=== PATIENT | male | born 1985 | race Caucasian/White ===

== ENCOUNTER → 2016-07-13 | Outpatient (CLI) | payer BC ==
[~2016-07-13] MED LIST: ATIVAN 0.50.5 MG/TAB; CONCERTA18 MG PO; VYVANSE70 MG
== END ==
LOC: BHSO 10:49
DX: F90.0 Attention-deficit hyperactivity disorder, predominantly inattentive type (principal)

== ENCOUNTER → 2016-07-14 | Outpatient (REF) | LOC: WSOH 08:20 | DX: Z02.4 Encounter for examination for driving license (principal) ==

== ENCOUNTER → 2016-10-12 | Outpatient (CLI) | payer BC | LOC: BHSO 10:57 | DX: F90.0 Attention-deficit hyperactivity disorder, predominantly inattentive type (principal) ==

== ENCOUNTER → 2017-01-11 | Outpatient (CLI) | payer BC | LOC: BHSO 10:48 | DX: F90.0 Attention-deficit hyperactivity disorder, predominantly inattentive type (principal) ==

== ENCOUNTER → 2017-03-01 | Outpatient (CLI) | payer BC | LOC: BHSO 13:42 | DX: F90.0 Attention-deficit hyperactivity disorder, predominantly inattentive type (principal) ==

== ENCOUNTER → 2017-08-02 | Outpatient (CLI) | payer BC | LOC: BHSO 10:02 | DX: F90.0 Attention-deficit hyperactivity disorder, predominantly inattentive type (principal) | CPT/HCPCS: G0463 ==

== ENCOUNTER → 2017-09-13 | Outpatient (CLI) | payer BC | LOC: BHSO 09:36 | DX: F41.1 Generalized anxiety disorder (principal) | CPT/HCPCS: G0463 ==

== ENCOUNTER → 2017-10-22 | Outpatient (CLI) | payer BC | LOC: BHSO 11:34 | DX: F90.0 Attention-deficit hyperactivity disorder, predominantly inattentive type (principal) | CPT/HCPCS: G0463 ==

== ENCOUNTER → 2017-12-03 | Outpatient (CLI) | payer BC | LOC: BHSO 11:27 | DX: F90.0 Attention-deficit hyperactivity disorder, predominantly inattentive type (principal) | CPT/HCPCS: G0463 ==

== ENCOUNTER 2018-02-03 11:41 | Emergency (ER) | payer BC ==
[~2018-02-03] VITALS: Ht 170.2 cm; Wt 72.3 kg
[2018-02-03 11:46] VITALS: TEMP 98.7
[2018-02-03] MEDS ORDERED: DEPAKOTE 125MG125 M1 PO (12:17)
[2018-02-03 13:11] LABS: BASO % 0.3 % (0.0-2.0); EOS # 0.1 (0.0-0.7); EOS % 0.8 % (0-4.0); HEMATOCRIT 45.4 % (42.0-52.0); HEMOGLOBIN 15.9 g/dl (13.5-18.0); LYMPH # 1.9 (1.2-3.4); LYMPH % 25.4 % (20.0-51.0); MEAN CELL VOLUME 88 fl (80.0-100.0); MEAN CORPUSCULAR HEMOGLOBIN 31 pg (27.0-31.0); MEAN CORPUSCULAR HGB CONC 35 g/dl (33.0-37.0); MONO # 0.6 (0.1-0.6); MONO % 8.1 % (1.7-9.3); PLATELET COUNT 148 K/mm3 (130-400); RED BLOOD COUNT 5.19 M/mm3 (4.20-5.60); REDCELL DISTRIBUTION WIDTH-CV 12.9 % (11.5-14.5)
[2018-02-03 13:24] LABS: ALBUMIN 4.1 gm/dL (3.5-5.0); BILIRUBIN,TOTAL 0.9 mg/dL (0.0-1.0); C-REACTIVE PROTEIN 1.4 mg/dL (0.0-0.9); CALCIUM 9.2 mg/dL (8.4-10.2); CREATININE, serum 0.76 mg/dL (0.66-1.25); POTASSIUM 4.1 mmol/L (3.4-5.0)
[2018-02-03 13:36] LABS: COLLECTION METHOD CLEAN CATCH
[2018-02-03 13:41] LABS: MUCOUS Present /lpf; PH 5 (5-8); SQUAMOUS EPITHELIAL 0-2 /hpf; URINE APPEARANCE Clear; URINE BACTERIA None Seen /hpf; URINE BILIRUBIN Negative (NEGATIVE); URINE BLOOD Negative (NEGATIVE); URINE COLOR Yellow; URINE GLUCOSE Negative (NEGATIVE); URINE KETONE Negative (NEGATIVE); URINE LEUKOCYTE ESTERASE Negative (NEGATIVE); URINE NITRATE Negative (NEGATIVE); URINE PROTEIN(semi-quant) Negative (NEGATIVE); URINE RBC 0-2 /hpf
[2018-02-03] MEDS ORDERED: NORCO 325 MG-51 TAB PO (16:25)
[2018-02-03 16:50] VITALS: BP 100/55; PULSE 54
[2018-02-03] MEDS ORDERED: PHENERGAN 25 TA25 MG PO (16:56)
[2018-02-04] MEDS ORDERED: CONCERTA54 MG PO (18:07)
[2018-02-04] MEDS ORDERED: DEPAKOTE ER 50500 MG PO (18:07)
== END 2018-02-03 16:51 | disposition home or self-care (01) ==
LOC: COL.ER 11:41
PROVIDERS: Nurse Practitioner
DX: R11.2 Nausea with vomiting, unspecified (principal); R10.30 Lower abdominal pain, unspecified; F90.9 Attention-deficit hyperactivity disorder, unspecified type; F41.9 Anxiety disorder, unspecified; F31.9 Bipolar disorder, unspecified; F17.210 Nicotine dependence, cigarettes, uncomplicated; Z88.0 Allergy status to penicillin
CPT/HCPCS: J1170; J1200; J1885; J2270; J2550; J2765; J7030; Q9967

== ENCOUNTER 2018-02-04 17:38 | Observation (INO) | payer BC ==
[~2018-02-04] VITALS: Ht 170.2 cm; Wt 73.5 kg
[~2018-02-04 17:38] MED LIST changes: +DEPAKOTE 125MG125 M1 PO; +NORCO 325 MG-51 TAB PO; +PHENERGAN 25 TA25 MG PO
[2018-02-04] MEDS ORDERED: CONCERTA54 MG PO (18:07)
[2018-02-04] MEDS ORDERED: DEPAKOTE ER 50500 MG PO (18:07)
[2018-02-04 18:37] LABS: BASO % 0.3 % (0.0-2.0); EOS # 0.1 (0.0-0.7); EOS % 1.1 % (0-4.0); GRAN # 3.7 (1.4-6.5); GRAN % 51.1 % (42.2-75.2); HEMATOCRIT 42.5 % (42.0-52.0); HEMOGLOBIN 14.9 g/dl (13.5-18.0); LYMPH % 40.8 % (20.0-51.0); MEAN CELL VOLUME 89 fl (80.0-100.0); MEAN CORPUSCULAR HEMOGLOBIN 31 pg (27.0-31.0); MEAN CORPUSCULAR HGB CONC 35 g/dl (33.0-37.0); MEAN PLATELET VOLUME 10.9 fl (7.4-10.4); MONO # 0.5 (0.1-0.6); MONO % 6.3 % (1.7-9.3); PLATELET COUNT 157 K/mm3 (130-400); REDCELL DISTRIBUTION WIDTH-CV 12.8 % (11.5-14.5)
[2018-02-04 18:44] LABS: ALBUMIN 3.9 gm/dL (3.5-5.0); BILIRUBIN,TOTAL 0.7 mg/dL (0.0-1.0); C-REACTIVE PROTEIN 0.8 mg/dL (0.0-0.9); CREATININE, serum 0.74 mg/dL (0.66-1.25); POTASSIUM 3.6 mmol/L (3.4-5.0); TOTAL PROTEIN 6.6 gm/dL (6.4-8.2)
[2018-02-04 20:59] VITALS: BP 123/70; PULSE 49; TEMP 98.1
[2018-02-04 21:00] VITALS: BP 123/70; PULSE 49; TEMP 98.1
[2018-02-05] VITALS (10 sets, daily range): BP systolic 103–134; BP diastolic 64–91; PULSE 52–81; TEMP 97.4–98.1
[2018-02-05 07:51] LABS: BASO % 0.3 % (0.0-2.0); EOS # 0.1 (0.0-0.7); GRAN # 4.1 (1.4-6.5); HEMATOCRIT 46.4 % (42.0-52.0); HEMOGLOBIN 15.9 g/dl (13.5-18.0); LYMPH # 4.2 (1.2-3.4); LYMPH % 45.9 % (20.0-51.0); MEAN CELL VOLUME 90 fl (80.0-100.0); MEAN CORPUSCULAR HEMOGLOBIN 31 pg (27.0-31.0); MEAN CORPUSCULAR HGB CONC 34 g/dl (33.0-37.0); MONO # 0.7 (0.1-0.6); MONO % 7.6 % (1.7-9.3); PLATELET COUNT 174 K/mm3 (130-400); RED BLOOD COUNT 5.18 M/mm3 (4.20-5.60); REDCELL DISTRIBUTION WIDTH-CV 12.8 % (11.5-14.5)
[2018-02-05 07:54] LABS: CALCIUM 9.3 mg/dL (8.4-10.2); CREATININE, serum 0.77 mg/dL (0.66-1.25); POTASSIUM 4.5 mmol/L (3.4-5.0)
[2018-02-06 00:32] VITALS: BP 109/56; PULSE 71; TEMP 98.2
[2018-02-06 04:34] VITALS: BP 110/63; PULSE 57; TEMP 97.6
[2018-02-06 07:57] VITALS: BP 100/52; PULSE 61; TEMP 98.2
[2018-02-06 12:17] VITALS: BP 117/71; PULSE 52; TEMP 98
[2018-02-06 16:07] VITALS: BP 120/72; PULSE 63; TEMP 98.1
[2018-02-06 20:02] VITALS: BP 119/74; PULSE 84; TEMP 97.8
[2018-02-07 04:06] VITALS: BP 108/70; PULSE 59; TEMP 97.7
[2018-02-07 07:51] VITALS: BP 125/75; PULSE 55; TEMP 97.5
[2018-02-07 11:40] VITALS: BP 102/60; PULSE 71; TEMP 97.6
[2018-02-07 16:07] VITALS: BP 102/60; PULSE 65; TEMP 98.6
[2018-02-07 20:00] VITALS: BP 115/77; PULSE 66; TEMP 98.3
[2018-02-08] VITALS: BP 117/71; PULSE 60; TEMP 98
[2018-02-08 04:00] VITALS: BP 117/75; PULSE 57; TEMP 97.6
[2018-02-08 07:35] VITALS: BP 113/70; PULSE 64; TEMP 97.6
[2018-02-08 11:21] VITALS: BP 115/64; PULSE 67; TEMP 97.8
== END 2018-02-08 14:27 | disposition home or self-care (01) ==
LOC: COL.ER 17:38 → SURG 19:03
PROVIDERS: Emergency Medicine; Surgery
DX: D13.30 Benign neoplasm of unspecified part of small intestine (principal); K56.1 Intussusception; F90.9 Attention-deficit hyperactivity disorder, unspecified type; F41.9 Anxiety disorder, unspecified; F31.9 Bipolar disorder, unspecified; F17.210 Nicotine dependence, cigarettes, uncomplicated; G89.29 Other chronic pain; Z88.0 Allergy status to penicillin
CPT/HCPCS: A4314; A9284; C9113; G0378; J0330; J0694; J1100; J1170; J1650; J1885; J2250; J2270; J2405; J2704; J2710; J3010; J3480

== ENCOUNTER → 2018-02-24 | Outpatient (CLI) | payer BC ==
[~2018-02-24] MED LIST changes: +CONCERTA54 MG PO; +DEPAKOTE ER 50500 MG PO
== END ==
LOC: BHSO 09:12
DX: F90.0 Attention-deficit hyperactivity disorder, predominantly inattentive type (principal)
CPT/HCPCS: G0463

== ENCOUNTER → 2018-05-12 | Outpatient (CLI) | payer BC | LOC: BHSO 08:14 | DX: F90.0 Attention-deficit hyperactivity disorder, predominantly inattentive type (principal) | CPT/HCPCS: G0463 ==

== ENCOUNTER → 2018-08-30 | Outpatient (CLI) | payer BC, OTHER | LOC: COL.RAD 09:18 | DX: M75.101 Unspecified rotator cuff tear or rupture of right shoulder, not specified as traumatic (principal); M12.811 Other specific arthropathies, not elsewhere classified, right shoulder ==

== ENCOUNTER → 2019-06-06 | Outpatient (CLI) | payer BC | LOC: COL.RAD 12:55 | DX: T14.8XXA Other injury of unspecified body region, initial encounter (principal); M25.462 Effusion, left knee ==

== ENCOUNTER 2021-01-25 14:15 | Emergency (ER) | payer BC ==
[~2021-01-25] VITALS: Ht 172.7 cm; Wt 76.4 kg
[~2021-01-25 14:15] MED LIST changes: +CARAFATE 1GM1 G PO; +PRILOSEC 20MG20 MG PO; +ZOFRAN ODT4 MG PO
[2021-01-25 14:27] VITALS: BP 120/80; TEMP 97.2
[2021-01-25] MEDS ORDERED: NORCO 325 MG-51 TAB PO (15:46)
[2021-01-25 17:20] VITALS: PULSE 68
== END 2021-01-25 17:20 | disposition home or self-care (01) ==
LOC: COL.ER 14:15
DX: R10.13 Epigastric pain (principal); F17.210 Nicotine dependence, cigarettes, uncomplicated; Z98.890 Other specified postprocedural states
CPT/HCPCS: J1170; J2270; J3010; J7030; Q9967

== ENCOUNTER 2021-03-14 09:26 | Day surgery (SDC) | payer BC ==
[~2021-03-14] VITALS: Ht 172.7 cm; Wt 73.5 kg
[2021-03-14 09:51] VITALS: BP 111/75; PULSE 68; TEMP 97.9
[2021-03-14 11:25] VITALS: BP 115/76; PULSE 65; TEMP 97.1
--- NOTE | 2021-03-14 11:25 | NUR ---
PATIENT TRANSPORTED PER CART FROM GI SUITE TO BAY 7 ACCOMPANIED BY ENDO RN. PATIENT AMBULATED FROM CART TO CHAIR WITH SLOW STEADY GAIT. 1 ASSIST. PATIENT TALKS WITH STAFF. MONITORS APPLIED. VSS ON ROOM AIR. 1140 VSS ON ROOM AIR. PATIENT TOLERATES FOOD AND DRINK WITHOUT PROBLEMS. DENIES NAUSEA AND DISCOMFORT. DR POSADA SPEAKS WITH PATIENT.
[2021-03-14 11:40] VITALS: BP 118/81; PULSE 66; TEMP 97.3
[2021-03-14 11:46] VITALS: BP 115/86; PULSE 66
[2021-03-14 12:00] VITALS: BP 118/80; PULSE 59
--- NOTE | 2021-03-14 12:00 | NUR ---
VSS ON ROOM AIR. PATIENT STATES READY TO GO EAT REAL FOOD. IV SITE DC'D WITH CATHETER TIP INTACT. PRESSURE AND BANDAGE APPLIED. DISCHARGE INSTRUCTIONS GIVEN VERBAL AND DISCHARGE PACKET GIVEN TO PATEINT. QUESTIONS ANSWERED AND PATIENT VOICED UNDERSTANDING. PATIENT CHANGES INTO STREET [employer]OTHES. 1210 PATIENT DISMISSED PER WHEEL CHAIR ACCOMPANIED BY AMB RN TO PRIVATE VECHILE DRIVEN BY .
== END 2021-03-14 12:10 | disposition home or self-care (01) ==
LOC: SDCO 09:26
DX: K29.50 Unspecified chronic gastritis without bleeding (principal); K21.00 Gastro-esophageal reflux disease with esophagitis, without bleeding; R63.4 Abnormal weight loss; K56.1 Intussusception; G89.29 Other chronic pain; M54.9 Dorsalgia, unspecified; I77.4 Celiac artery compression syndrome; F90.9 Attention-deficit hyperactivity disorder, unspecified type; F31.9 Bipolar disorder, unspecified; F41.9 Anxiety disorder, unspecified; F17.210 Nicotine dependence, cigarettes, uncomplicated; Z20.822 Contact with and (suspected) exposure to COVID-19; Z79.899 Other long term (current) drug therapy
CPT/HCPCS: J2704; J7030

== ENCOUNTER 2023-07-06 00:52 | Inpatient (IN) | payer OTHER ==
[~2023-07-06] VITALS: Ht 172.7 cm; Wt 75.1 kg
[2023-07-06] VITALS (8 sets, daily range): BP systolic 118–129; BP diastolic 77–87; PULSE 68–80; TEMP 97.4–97.6
[~2023-07-06 00:52] MED LIST changes: +PROTONIX 40MG T40 MG PO
[2023-07-06 01:15] LABS: BASO % 0.4 % (0.0-2.0); EOS # 0.2 K/mm3 (0.0-0.7); EOS % 1.4 % (0.0-4.0); GRAN % 70.9 % (42.2-75.2); HEMATOCRIT 42.7 % (42.0-52.0); HEMOGLOBIN 14.9 g/dl (13.5-18.0); LYMPH # 2.4 K/mm3 (1.2-3.4); LYMPH % 21.6 % (20.0-51.0); MEAN CELL VOLUME 88 fl (80.0-100.0); MEAN CORPUSCULAR HEMOGLOBIN 31 pg (27-31); MEAN CORPUSCULAR HGB CONC 35 g/dl (33.0-37.0); MEAN PLATELET VOLUME 11.5 fl (7.4-10.4); MONO # 0.6 K/mm3 (0.1-0.6); MONO % 5.4 % (1.7-9.3); PLATELET COUNT 219 K/mm3 (130-400); RED BLOOD COUNT 4.86 M/mm3 (4.20-5.60); REDCELL DISTRIBUTION WIDTH-CV 12.8 % (11.5-14.5)
[2023-07-06 02:06] LABS: ALBUMIN 3.7 gm/dL (3.5-5.0); BILIRUBIN,TOTAL 0.7 mg/dL (0.2-1.2); C-REACTIVE PROTEIN 0.33 mg/dL (0.00-0.50); CREATININE, serum 0.77 mg/dL (0.72-1.25); POTASSIUM 3.9 mmol/L (3.5-4.5); TOTAL PROTEIN 5.9 gm/dL (6.2-8.1)
[2023-07-06] MEDS ORDERED: ADDERALL XR30 MG PO (02:11)
[2023-07-06] MEDS ORDERED: NUVIGIL200 MG PO (02:12)
--- NOTE | 2023-07-06 05:01 | NUR ---
pt arrived to room 329 at 0435. pt ambulated to bed with steady gait. pt ng hooked to lis with brown drainage. pt reports his abd/epigastric pain was relieved by meds given in the er. pt educated to call if he begins having pain again. pt a&o x4. pt has lr running at 125ml/hr to the right wrist. pt aware he is npo and denied mouth swabs for now. pt vss. call light in reach. all needs met at this time.
--- NOTE | 2023-07-06 08:49 | NUR ---
Initial visit attempt; Patient resting, Waist Pleater left card offering Spiritual Care at [facility].
--- NOTE | 2023-07-06 08:50 | NUR ---
PT RESTING IN BED WITH NG TUBE TO DR HILARY ZAMUDIO IN TO SEE PT THIS AM. SEE COMPUTER FOR NEW ORDERS. SCANT DRAINAGE IN TUBE AND NONE IN CANISTER. IV TO LFA.
--- NOTE | 2023-07-06 08:52 | NUR ---
Initial visit attempt; Patient resting. Client Experience Specialist left card offering Spiritual [facility] at [facility].
--- NOTE | 2023-07-06 09:34 | NUR ---
beadworker met with patient to complete discharge planning. Pt lives with his family in [place]. He reports his PCP as Dr. Angel and obtains medications from [facility] with no difficulties. He obtains generic meds as the name brand are expensive. He is independent with [facility] and uses no DME. Pt would like to complete a DPOA-HC, but asked if SW could do it later. SW provided her number for him to call when he is ready. Pt declines the need for PT/OT services and reports he gets around fine. He intends to return home at discharge. Discharge Plan: Home
[2023-07-06 10:30] LABS: BASO % 0.2 % (0.0-2.0); EOS # 0.1 K/mm3 (0.0-0.7); EOS % 1.5 % (0.0-4.0); GRAN # 5.6 K/mm3 (1.4-6.5); GRAN % 64.9 % (42.2-75.2); HEMATOCRIT 39.6 % (42.0-52.0); HEMOGLOBIN 13.8 g/dl (13.5-18.0); LYMPH # 2.3 K/mm3 (1.2-3.4); LYMPH % 26.7 % (20.0-51.0); MEAN CELL VOLUME 89 fl (80.0-100.0); MEAN CORPUSCULAR HEMOGLOBIN 31 pg (27-31); MEAN CORPUSCULAR HGB CONC 35 g/dl (33.0-37.0); MEAN PLATELET VOLUME 10.2 fl (7.4-10.4); MONO # 0.6 K/mm3 (0.1-0.6); MONO % 6.5 % (1.7-9.3); PLATELET COUNT 165 K/mm3 (130-400); RED BLOOD COUNT 4.45 M/mm3 (4.20-5.60); REDCELL DISTRIBUTION WIDTH-CV 12.9 % (11.5-14.5)
[2023-07-06 10:51] LABS: ALBUMIN 3.3 gm/dL (3.5-5.0); BILIRUBIN,TOTAL 0.5 mg/dL (0.2-1.2); CALCIUM 8.8 mg/dL (8.4-10.2); CREATININE, serum 0.72 mg/dL (0.72-1.25); POTASSIUM 3.8 mmol/L (3.5-4.5); TOTAL PROTEIN 5.6 gm/dL (6.2-8.1)
--- NOTE | 2023-07-06 19:14 | NUR ---
report received from kim ontiveros. pt resting in bed with family at bedside. pt reports some pain but states prn medication given by previous shift has relieved most of it. pt rates pain 2/10. call light in reach. all needs met at this time.
--- NOTE | 2023-07-06 21:14 | NUR ---
shift assessment complete, see documentation. pt reporting 7/10 abd pain. prn dilaudid administered per orders. pt tolerating clears ok. ivf continue to run to right wrist iv without issue. call light in reach. all needs met at this time.
[2023-07-07] VITALS (17 sets, daily range): BP systolic 117–153; BP diastolic 79–97; PULSE 49–83; TEMP 97.5–98.9
--- NOTE | 2023-07-07 00:33 | NUR ---
pt pain not controlled with prn dilaudid. called dr blanton. new order for prn norco 5-325mg q4h for pain. norco administered per orders. call light in reach. all needs met at this time.
--- NOTE | 2023-07-07 00:50 | NUR ---
pt reporting the pain meds do seem to be keeping his pain level down. prn norco dropped his pain level a small amount. prn dilaudid administered per orders. pt now laying down for bed. call light in reach. all needs met at this time.
--- NOTE | 2023-07-07 08:37 | NUR ---
PT RESTING IN BED, PAIN ISSUES CONTINUE. PLAN ON SURGERY LATER THIS PM. IV FLUIDS RUNNING PER ORDER. PT REMAINS NPO AT THIS TIME.
--- NOTE | 2023-07-07 13:15 | NUR ---
PT TO SURGERY PER BED WITH VIV AT THIS TIME.
--- NOTE | 2023-07-07 18:02 | NUR ---
PT RESTING IN BED EATING AND DRINKING NO N/V. AT BEDSIDE.
--- NOTE | 2023-07-07 19:50 | NUR ---
PT A&O X4 LAYING IN BED. VSS. X4 LAP SITES CD&I WITH BANDAIDS. PT DENYING N/V. STATES ABD PAIN IS 8/10 & THAT HIS PAIN HAS NOT GONE DOWN SINCE SURGERY. OFFERED PRN PAIN MEDS, BUT PT REFUSING AT THIS TIME & STATES HE WOULD LIKE TO TRY TO AMBULATE & CLEAN HIMSELF UP TO SEE IF THAT HELPS HIM FEEL BETTER. INT TO RIGHT WRIST PATENT. SCDS ON. PT DENYING FURTHER NEEDS & CALL LIGHTS IN REACH.
--- NOTE | 2023-07-07 21:02 | NUR ---
PT AMBULATED & TOOK SHOWER THIS EVENING. CURRENTLY SITTING UP IN CHAIR & STATES HIS PAIN CONTINUE TO BE 8/10 & THAT HE FEELS VERY BLOATED, WILL GIVE PRN PER PT REQUEST.
[2023-07-08] VITALS (8 sets, daily range): BP systolic 103–121; BP diastolic 63–86; PULSE 56–79; TEMP 97.7–98
--- NOTE | 2023-07-08 00:53 | NUR ---
Patient ambulating in halls. Complaining of severe acid reflux. Call placed to Dr. Perkins, stone trimmer for Dr. Damico. New order recieved for GI coctail.
--- NOTE | 2023-07-08 01:22 | NUR ---
PT AMBULATING HALLS & C/O GAS PAIN & ACID REFULX. GIVEN GI COCKTAIL. PT CONTINUES TO AMBULATE HALLS.
--- NOTE | 2023-07-08 01:47 | NUR ---
PT NOW RESTING IN BED WITH EVEN & UNLABORED RESP.
--- NOTE | 2023-07-08 02:47 | NUR ---
PT LAYING IN BED & STATING HE CONTINUES TO HAVE ABD & GAS PAIN RATING IT 8/10. REQUESTING PAIN MEDS, GIVEN PRN.
--- NOTE | 2023-07-08 08:53 | NUR ---
Pt drowsy, states that he did not get much sleep last night. Pt rating his pain 6-7/10 at this time, PRN pain medication given. Pt refusing breakfast at this time, states that he knows how to order and will do so when he wakes up more. Call light within reach
--- NOTE | 2023-07-08 10:47 | NUR ---
Pt continues to rest in bed with his eyes closed, but does wake easily when spoken to. SO is at bedside at this time. Encouraged him to take some walks, pt just mummbled okay. Pt still not wanting anything to eat at this time
[2023-07-08] MEDS ORDERED: NORCO 325 MG-51 TAB PO (12:09)
--- NOTE | 2023-07-08 12:42 | NUR ---
Reviewed discharge instructions with pt and SO. Reviewed low fat diet, pain medication and activity. Verbalized understanding. INT removed. Pt refusing wheelchair for discharge. Pt escorted to the cafeteria as they are going to eat lunch there.
== END 2023-07-08 12:50 | disposition home or self-care (01) | DRG 419 ==
LOC: COL.ER 00:52 → SURG 02:55
PROVIDERS: Emergency Medicine; ADMIT Surgery
PROC: 0FT44ZZ Resection of Gallbladder, Percutaneous Endoscopic Approach (ICD-10-PCS; principal; 2023-07-06)
PROC: 8E0W4CZ Robotic Assisted Procedure of Trunk Region, Percutaneous Endoscopic Approach (ICD-10-PCS; 2023-07-06)
DX: K80.00 Calculus of gallbladder with acute cholecystitis without obstruction (principal)
CPT/HCPCS: J0665; J0690; J1100; J1170; J1885; J1956; J2270; J2405; J2704; J3010; J7030; J7120; Q9967

== ENCOUNTER 2023-08-31 20:34 | Emergency (ER) | payer OTHER ==
[~2023-08-31] VITALS: Ht 172.7 cm; Wt 75.0 kg
[~2023-08-31 20:34] MED LIST changes: +ADDERALL XR30 MG PO; +NUVIGIL200 MG PO
[2023-08-31 20:42] VITALS: TEMP 97.4
[2023-08-31] MEDS ORDERED: FLAGYL500 MG PO (21:08)
[2023-08-31] MEDS ORDERED: BACTRIM DS 8001 TAB PO (21:08)
[2023-08-31 21:27] VITALS: BP 129/76; PULSE 79
== END 2023-08-31 21:27 | disposition home or self-care (01) ==
LOC: COL.ER 20:34
DX: S01.81XA Laceration without foreign body of other part of head, initial encounter (principal); F17.210 Nicotine dependence, cigarettes, uncomplicated; W50.0XXA Accidental hit or strike by another person, initial encounter; Y92.39 Other specified sports and athletic area as the place of occurrence of the external cause; Y93.72 Activity, wrestling